=== PATIENT | female | born 1975 | race Two or more races ===

== ENCOUNTER 2017-08-09 12:09 | Outpatient (CLI) | payer OTHER | END 2017-08-09 15:00 | disposition home or self-care (01) | LOC: RX STUDY 12:09 | DX: N39.0 Urinary tract infection, site not specified (principal) ==

== ENCOUNTER → 2019-07-02 | Outpatient (CLI) | payer OTHER | END | disposition home or self-care (01) | LOC: RX STUDY 10:15 | DX: N70.11 Chronic salpingitis (principal); D25.9 Leiomyoma of uterus, unspecified ==